=== PATIENT | female | born 1955 | race Caucasian/White ===

== ENCOUNTER 2020-02-12 15:28 | Observation (INO) | payer OTHER ==
[~2020-02-12] VITALS: Ht 170.2 cm; Wt 82.6 kg
[2020-02-12 15:32] VITALS: Ht 170.2 cm; Wt 82.6 kg
--- NOTE | 2020-02-12 15:37 | NUR ---
EKG IN PROGRESS
--- NOTE | 2020-02-12 16:08 | NUR ---
PT BIB SELF C/C LT ARM PAIN STS NOW GOING TO CHEST AND EPISODES OF SOB AWAITING FOR DR TO [facility]
--- NOTE | 2020-02-12 16:15 | NUR ---
DR RAMIREZ AT BEDSIDE TO [facility]
--- NOTE | 2020-02-12 16:16 | NUR ---
PLEASE ENTER FULL NAMES OF ADMINISTRATIVE PERSONAL ASSISTANT/RN Patient data collected by (ADMINISTRATIVE PERSONAL ASSISTANT): Bruno MONROE ADMINISTRATIVE PERSONAL ASSISTANT Assessment reviewed and completed by (RN): MAXIMINO CARDENAS RN
--- NOTE | 2020-02-12 16:29 | NUR ---
XRAY AT BEDSIDE
[2020-02-12 16:47] LABS: CALCIUM 9.4 mg/dL (8.5-10.1); CHLORIDE SERUM 102 mmol/L (98-107); CREATININE SERUM 0.9 mg/dL (0.6-1.0); GFR1 > 60 mL/min; GLUCOSE SERUM 95 mg/dL (74-106); POTASSIUM SERUM 3.6 mmol/L (3.5-5.1); SODIUM SERUM 139 mmol/L (136-145)
[2020-02-12 16:49] LABS: BASOPHIL % 0.7 % (0-2); PLATELET COUNT 258 x10^3mcL (130-400); RED CELL DISTRIBUTION WIDTH 14.6 % (11.5-14.5)
[2020-02-12 16:59] LABS: ALBUMIN 4.4 g/dL (3.4-5.0); ALKALINE PHOSPHATASE 76 U/L (46-116); ALT/SGPT 27 U/L (14-59); AST/SGOT 16 U/L (15-37); BILIRUBIN TOTAL 0.33 mg/dL (0.20-1.00); LIPASE 102 IU/L (73-393); T4(THYROXINE) 8.4 ug/dL (4.7-13.3)
[2020-02-12 17:02] LABS: CHOLESTEROL 258 mg/dL (<200); HDL CHOLESTEROL 79 mg/dL (40-60); TOTAL PROTEIN, SERUM 8.4 g/dL (6.4-8.2)
[2020-02-12 17:11] LABS: UA SPECIFIC GRAVITY <=1.005 (1.005-1.035); microscopic required? YES; urine erythrocyte NEGATIVE (NEGATIVE)
[2020-02-12 17:18] LABS: AMPHETAMINE QUAL UR NONE DETECTED (See below)
--- NOTE | 2020-02-12 17:55 | NUR ---
PT DENIES PAIN OR DISCOMFORT
--- NOTE | 2020-02-12 18:33 | NUR ---
PT SLEEPING AWAITING FOR ROOM ADMIT
--- NOTE | 2020-02-12 19:20 | NUR ---
REPORT RECEIVED FROM CORTNEY BENZ FOR CONTINUITY OF CARE. PATIENT MADE AWARE. WILL CONTINUE TO MONITOR.
--- NOTE | 2020-02-12 20:46 | NUR ---
REPORT GIVEN TO FLORENCE JOHNSON TO ASSUME CARE OF PT.
--- NOTE | 2020-02-12 21:08 | NUR ---
RECEIVED PT VIA [employer] FROM E/D, ACCOMPANIED BY RN AND TRANSPORTER. PT A/A/O X 4, EXHIBITING ANXIETY AMB VERBALIZATION OF ANXIOUSNESS (NO PARTICULAR REASON), BUT COOPERATIVE TO CARE AT THIS TIME. WEARS GLASSES (W/ PT). AMBULATORY, NO GAIT OR BALANCE IMPAIRMENT NOTED WHEN WALKING FROM GURNEY TO BED. ON TELE # 10, NSR, HR 79, DENIES CHEST PAIN OR DISCOMFORT AT THIS TIME. SCD BY BEDSIDE. NO ACUTE RESPIRATORY DISTRESS NOTED. IV SITE LAC 20G, CDI. ORIENTED PT TO ROOM, BED CONTROLS, CALL LIGHT SYSTEM. SIDE RAILS UP X 2, BED IN LOW POSITION. BP NOTED TO BE ELEVATED @ 176/02 (114); DENIES DIZZINESS OR NAUSEA. WILL ENDORSE TO ELIZABETH HENRIQUEZ.
[2020-02-12 22:27] VITALS: BP 176/102
[2020-02-12 23:49] LABS: MAGNESIUM 2.6 mg/dL (1.8-2.4)
[2020-02-12 23:50] LABS: CHOLESTEROL/HDL RATIO 3.2
[2020-02-12 23:55] VITALS: BP 123/69
--- NOTE | 2020-02-13 02:15 | NUR ---
PT RESTING WITH EYES CLOSED. BREATHING EVEN AND UNLABORED ON ROOM AIR. NO DISTRESS NOTED. CALL LIGHT WITHIN REACH. WILL CONTINUE TO MONITOR.
--- NOTE | 2020-02-13 06:01 | NUR ---
PT RESTED IN INTERVALS THROUGHOUT SHIFT. NO SOB ON ROOM AIR. BREATHING EVEN AND UNLABORED. NO C/O CHEST PAIN. NO DISTRESS NOTED. SAFETY MEASURES MAINTAINED. CALL LIGHT WITHIN REACH. WILL ENDORSE CONTINUITY OF CARE TO DAY SHIFT RN.
[2020-02-13 06:03] VITALS: BP 145/86
--- NOTE | 2020-02-13 07:30 | NUR ---
PT IS AAOX4. TELE [address] READING NSR. IV CATH TO LAC PATENT, SITE WNL. PT DENIES C/P AND PRESSURE. CALL LIGHT WITHIN REACH.
[2020-02-13 08:21] VITALS: BP 153/74
--- NOTE | 2020-02-13 08:44 | NUR ---
SCHEDULED ASA AND METOPROLOL GIVEN AND TOLERATED WELL. B/P 153/74, HR 86. PT DENIES C/P, PRESSURE AND PALPITATIONS. PT EDUCATED ON THE BENEFITS AND S/D OF METOPROLOL. CALL CADEN ESPOSITO.
[2020-02-13] MEDS ORDERED: ECO81 PO (11:05)
[2020-02-13] MEDS ORDERED: LIPITOR20 MG GT (11:06)
[2020-02-13] MEDS ORDERED: COLACE100 MG PO ×2 (11:07→15:29)
[2020-02-13] MEDS ORDERED: NASAL MIST126 ML (11:07)
--- NOTE | 2020-02-13 12:15 | NUR ---
PT SITTING UP AT BEDSIDE. RESP EVEN AND UNLABORED. NO DISTRESS NOTED. DENIES C/P. CALL LIGHT WITHIN REACH.
[2020-02-13 12:53] VITALS: BP 146/84
[2020-02-13 13:10] VITALS: BP 146/84
[2020-02-13] MEDS ORDERED: LIPI20 GT (15:29)
--- NOTE | 2020-02-13 15:50 | NUR ---
PT DISCHARGED TO HOME IN NO DISTRESS. TELE 10 REMOVED AND RETURNED TO SLOT FLOORPERSON. IV CATH TO LAC REMOVED INTACT. VS: 97.5, 60, 18, 146/84/ 96 ON R/A. DISCHARGE INSTRUCTIONS REVIEWED. ALL FORMS SIGNED AND QUESTIONS ADDRESSED. PT DENIES PAIN AT TIME OF DISCHARGE. PT INFORMED THAT ALL PRESCRIPTIONS HAVE BEEN TO THE PHARMACY THE PT INDICATED. ALL PERSONAL BELONGINGS TAKEN HOME.
== END 2020-02-13 15:31 | disposition home or self-care (01) ==
LOC: ED 15:28 → DU 19:31
PROVIDERS: Emergency Medicine; ADMIT Internal Medicine Pulmonary Disease
DX: R07.89 Other chest pain (principal); I10 Essential (primary) hypertension; E78.5 Hyperlipidemia, unspecified; F32.9 Major depressive disorder, single episode, unspecified
CPT/HCPCS: 83880; G0378; Q0092